=== PATIENT | male | born 1980 | race Caucasian/White ===

== ENCOUNTER 2018-01-18 10:42 | Emergency (ER) | payer BC ==
--- NOTE | 2018-01-18 11:02 | CPEKG ---
Heart Rate: 72 RR Interval: 833 P-R Interval: 156 QRSD Interval: 94 QT Interval: 392 QTC Interval: 430 P Sunset: 36 QRS Sunset: 26 T Wave Sunset: 22 EKG Severity - OTHERWISE NORMAL ECG - EKG Impression: SINUS ARRHYTHMIA, RATE 66-78 Electronically Signed By: Sarah Beth Ludwig 18-Jan-2018 15:22:04
--- NOTE | 2018-01-18 11:22 | EDPHY ---
H & P Stated Complaint: intermittent cp/l arm pain since yesterday Time Seen by Provider: 01/18/18 10:55 HPI/ROS: CHIEF COMPLAINT: Chest pain HISTORY OF PRESENT ILLNESS: 37-year-old male presents with chest pain. 2 days ago he was sitting when he had sharp and stabbing left-sided chest pain. The pain was transient, lasting 1-2 seconds and radiated to his left shoulder. He had 2 episodes of similar discomfort 2 days ago. He was asymptomatic yesterday. Today he was sitting at his desk, when he developed left-sided chest discomfort lasting a few seconds, associated with dizziness. He has had 3 -4 episodes of similar discomfort since then. He was seen in urgent care and sent to the emergency department for further evaluation. No prior cardiac history. Cardiac risk factors negative. Nonsmoker; no family history; no hypertension, diabetes or hypercholesterolemia. REVIEW OF SYSTEMS: complete 10 point ROS negative except at noted in the HPI - Personal History Current Tetanus Diphtheria and Acellular Pertussis (TDAP): Unsure - Medical/Surgical History Hx Asthma: No Hx Chronic Respiratory Disease: No Hx Diabetes: No Hx Cardiac Disease: No Hx Renal Disease: No Hx Cirrhosis: No Hx Alcoholism: No Hx HIV/AIDS: No Hx Splenectomy or Spleen Trauma: No Other PMH: appy/ kidney stones/chronic back pain - Social History Smoking Status: Never smoked - Physical Exam Exam: General Appearance: Alert, pleasant Eyes: Pupils equal and round, no conjunctival pallor or injection ENT, Mouth: Mucous membranes moist Neck: Normal inspection Respiratory: Lungs are clear to auscultation Cardiovascular: Regular rate and rhythm Gastrointestinal: Abdomen is soft and nontender Neurological: A&O, nonfocal exam Skin: Warm and dry, no rash Extremities: Nontender, no pedal edema Psychiatric: Anxious Constitutional: Initial Vital Signs Temperature (C) 36.8 C 01/18/18 10:44 Heart Rate 63 01/18/18 10:44 Respiratory Rate 18 01/18/18 10:44 Blood Pressure 135/103 H 01/18/18 10:44 O2 Sat (%) 95 01/18/18 10:44 O2 Delivery Mode Room Air Allergies/Adverse Reactions: Penicillins Allergy (Verified 01/18/18 10:44) Sulfa (Sulfonamide Antibiotics) Allergy (Verified 01/18/18 10:44) Home Medications: Medication Instructions Recorded Vicodin 5-300 mg Tablet 01/18/18 Medical Decision Making - Diagnostics EKG Interpretation: EKG interpreted by me reveals sinus arrhythmia, rate approximately 72, no ST or T segment changes. Interpretation normal EKG Imaging Results: Imaging Impressions Chest X-Ray 01/18/18 11:03 Impression: Clear lungs. No acute process. Imaging: I viewed and interpreted images myself ED Course/Re-evaluation: This patient presents with atypical chest pain. The pain lasts 1-2 seconds and sharp and stabbing in nature, suggestive of musculoskeletal etiology. Stat EKG reveals no evidence of ischemia or dysrhythmia. Chest x-ray is unremarkable. After careful consideration and evaluation, I find no evidence of acute coronary syndrome. The patient has no risk factors for coronary disease, normal EKG and normal troponin. Heart score is 0. I do not feel that additional ED testing is indicated. In addition, I feel that I can safely exclude pulmonary embolism, with normal vital signs, normal oxygen saturation and no risk factors. PERC score negative; age less than 50, normal physical exam, no prior thromboembolism, no recent surgery, no estrogen use. In addition there is no evidence of pneumothorax, pneumonia, aortic dissection. Feel that he is safe and stable for discharge home. Differential Diagnosis: Differential diagnosis includes though it is not limited to pneumonia, pneumothorax, pulmonary embolism, aortic dissection, pericarditis, acute coronary syndrome. - Data Points Laboratory Results: Laboratory Results 01/18/18 11:00 01/18/18 11:00 01/18/18 01/18/18 01/18/18 11:09 11:00 11:00 WBC RBC Hgb Hct MCV MCH MCHC RDW Plt Count MPV Neut % (Auto) Lymph % (Auto) Hyde % (Auto) Eos % (Auto) Baso % (Auto) Nucleat RBC Rel Count Absolute Neuts (auto) Absolute Lymphs (auto) Absolute Monos (auto) Absolute Eos (auto) Absolute Basos (auto) Absolute Nucleated RBC Immature Gran % Immature Gran # D-Dimer < 0.27 ug/mLFEU ug/mLFEU (0.00-0.50) Sodium 143 mEq/L mEq/L (135-145) Potassium 4.4 mEq/L mEq/L (3.3-5.0) Chloride 106 mEq/L mEq/L (97-110) Carbon Dioxide 22 mEq/l mEq/l (22-31) Anion Gap 15 mEq/L mEq/L (8-16) BUN 19 mg/dL mg/dL (7-23) Creatinine 0.9 mg/dL mg/dL (0.7-1.3) Estimated GFR > 60 Glucose 80 mg/dL mg/dL (70-100) Calcium 10.0 mg/dL mg/dL (8.5-10.4) POC Troponin I 0.01 ng/mL ng/mL (0.00-0.08) NT-Pro-B Natriuret Pep 33 pg/mL pg/mL (0-125) 01/18/18 11:00 WBC 5.56 10^3/uL 10^3/uL (3.80-9.50) RBC 5.13 10^6/uL 10^6/uL (4.40-6.38) Hgb 15.7 g/dL g/dL (13.7-17.5) Hct 46.3 % % (40.0-51.0) MCV 90.3 fL fL (81.5-99.8) MCH 30.6 pg pg (27.9-34.1) MCHC 33.9 g/dL g/dL (32.4-36.7) RDW 12.9 % % (11.5-15.2) Plt Count 297 10^3/uL 10^3/uL (150-400) MPV 9.6 fL fL (8.7-11.7) Neut % (Auto) 55.5 % % (39.3-74.2) Lymph % (Auto) 28.8 % % (15.0-45.0) Hyde % (Auto) 10.6 % % (4.5-13.0) Eos % (Auto) 4.0 % % (0.6-7.6) Baso % (Auto) 0.7 % % (0.3-1.7) Nucleat RBC Rel Count 0.0 % % (0.0-0.2) Absolute Neuts (auto) 3.09 10^3/uL 10^3/uL (1.70-6.50) Absolute Lymphs (auto) 1.60 10^3/uL 10^3/uL (1.00-3.00) Absolute Monos (auto) 0.59 10^3/uL 10^3/uL (0.30-0.80) Absolute Eos (auto) 0.22 10^3/uL 10^3/uL (0.03-0.40) Absolute Basos (auto) 0.04 10^3/uL 10^3/uL (0.02-0.10) Absolute Nucleated RBC 0.00 10^3/uL 10^3/uL (0-0.01) Immature Gran % 0.4 % % (0.0-1.1) Immature Gran # 0.02 10^3/uL 10^3/uL (0.00-0.10) D-Dimer Sodium Potassium Chloride Carbon Dioxide Anion Gap BUN Creatinine Estimated GFR Glucose Calcium POC Troponin I NT-Pro-B Natriuret Pep Point of Care Test Results: Chemistry 01/18/18 11:09 POC Troponin I 0.01 ng/mL ng/mL (0.00-0.08) Departure - Departure Disposition: Home, Routine, Self-Care Clinical Impression: Chest pain Qualifiers: Chest pain type: intercostal pain Qualified Code(s): R07.82 - Intercostal pain Condition: Good Instructions: Chest Pain (ED) Referrals: DAYAN DELANEY [Primary Care Provider] - As per Instructions
[2018-01-18 11:24] LABS: PLATELET COUNT 297 10^3/uL (150-400)
[2018-01-18 11:53] VITALS: BP 123/93
== END 2018-01-18 12:15 | disposition home or self-care (01) ==
DX: R07.82 Intercostal pain (principal)
CPT/HCPCS: 84484-PO